=== PATIENT | male | born 1970 | race Caucasian/White ===

== ENCOUNTER 2016-12-09 17:17 | Emergency (ER) | payer OTHER ==
[2016-12-09 17:20] VITALS: BP 147/99; PULSE 67; RESP 15; TEMP 98.1; O2SAT 100
--- NOTE | 2016-12-09 17:36 | PD ---
Physical Exam Time Seen by Provider: 17:34 Narrative 46 year old male presents to ED for evaluation of itching and weeping of skin on face. Rash started [address] Springer gave pt injection for possible allergic reaction 6 days ago, but symptoms persist. PCP advised he come for possible evaluation of infection. Denies fever or chills. No new exposures. Data Data Last Documented VS Vital Signs Date Time Temp Pulse Resp B/P (MAP) Pulse Ox O2 Delivery O2 Flow Rate FiO2 12/09/16 18:35 12/09/16 17:20 98.1 67 15 100 Room Air [facility] Medical Record Reviewed: Yes Supervised Visit with CHELO: No Scripts Triamcinolone Topical (Triamcinolone Topical) 0.1% Cream 1 APPLIC TOPICAL BID for Inflammation for 10 Days, GM 0 Refills Prov: Merna Zhang DO 12/09/16 Cephalexin (Keflex) 500 Mg Capsule 500 MG PO Q8H for Infection for 10 Days, #30 CAP 0 Refills Prov: Merna Zhang DO 12/09/16 Condition: Stable Theresa Burrell Dec 09, 2016 17:35
[2016-12-09] MEDS ORDERED: CEPH-460 PO (18:03)
[2016-12-09] MEDS ORDERED: TRIA.1%T TOPICAL (18:03)
--- NOTE | 2016-12-09 18:10 | PD ---
HPI Chief Complaint: Skin Problem Time Seen by Provider: 18:02 Travel History International Travel<30 days: No Contact w/Intl Traveler<30days: No Traveled to known affect area: No History of Present Illness HPI 46-year-old male presents for evaluation of rash to the chin jawline. It started 2 weeks ago. The rash itches and belcher. No alleviating factors. He is tripoding baby powder on it but the rash persisted. He does shave his face on a regular basis. He denies using any makeup sore chemicals on his face. He saw his primary care physician 3 days ago and was given some sort of injection for possible allergic reaction. The rash persisted which prompted evaluation today. No fevers, chills, oral pain, cough or congestion or sore throat. He has no other complaints. [facility] Social History Alcohol Use: No Tobacco Use: No Allergies-Medications (Allergen,Severity, Reaction): Coded Allergies: No Known Allergies (Unverified , 12/09/16) Reported Meds & Prescriptions Reported Meds & Active Scripts Active Triamcinolone Topical (Triamcinolone Acetonide) 0.1% Cream 1 Applic TOPICAL BID 10 Days Keflex (Cephalexin) 500 Mg Capsule 500 Mg PO Q8H 10 Days Review of Systems General / Constitutional: No: Fever, Chills HENT: No: Congestion Respiratory: No: Cough Skin: Positive Rash, Positive Itching Physical Exam Narrative GENERAL: Well-nourished male in no acute distress SKIN: Warm and dry. Nonspecific papular lesions noted to the jaw and chin. No vesicles no pustules no erythema and no induration no petechiae HEAD: Atraumatic. Normocephalic. EYES: Pupils equal and round. No scleral icterus. No injection or drainage. ENT: No nasal bleeding or discharge. Mucous membranes pink and moist. NECK: Trachea midline. No JVD. CARDIOVASCULAR: Regular rate and rhythm. No murmur appreciated. RESPIRATORY: No accessory muscle use. Clear to auscultation. Breath sounds equal bilaterally. Data Data Last Documented VS Vital Signs Date Time Temp Pulse Resp B/P (MAP) Pulse Ox O2 Delivery O2 Flow Rate FiO2 12/09/16 17:20 98.1 67 15 147/99 (115) 100 Room Air MDM Medical Decision Making Medical Screen Exam Complete: Yes Emergency Medical Condition: Yes Medical Record Reviewed: Yes Differential Diagnosis Folliculitis, irritant contact dermatitis, cellulitis, tinea corporis Narrative Course Examination reveals nonspecific papular lesions localized to the chin and jaw line which are most likely folliculitis versus irritant contact dermatitis. The patient is being discharged with Keflex and triamcinolone cream. Recommend follow-up with primary care physician. Diagnosis Primary Impression: Folliculitis Additional Impression: Irritant contact dermatitis Qualified Codes: L24.9 - Irritant contact dermatitis, unspecified cause Additional Instructions: Medication as prescribed. [id number] Benadryl for itching. Follow-up with primary care. Med/Other Pt SpecificInfo: Prescription(s) given Scripts Triamcinolone Topical (Triamcinolone Topical) 0.1% Cream 1 APPLIC TOPICAL BID for Inflammation for 10 Days, GM 0 Refills Prov: Merna Zhang DO 12/09/16 Cephalexin (Keflex) 500 Mg Capsule 500 MG PO Q8H for Infection for 10 Days, #30 CAP 0 Refills Prov: Merna Zhang DO 12/09/16 Disposition: 01 DISCHARGE HOME Condition: Stable Jamie Royal Dec 09, 2016 18:10
== END 2016-12-09 18:37 | disposition home or self-care (01) ==
LOC: NEPK 17:17
DX: L73.9 Follicular disorder, unspecified (principal); L24.9 Irritant contact dermatitis, unspecified cause
CPT/HCPCS: 99284

== ENCOUNTER 2017-06-17 08:46 | Emergency (ER) | payer OTHER, BC ==
[~2017-06-17] VITALS: Ht 170.2 cm; Wt 83.0 kg
[~2017-06-17 08:46] MED LIST: CEPH-460 PO; TRIA.1%T TOPICAL
[2017-06-17 08:54] VITALS: BP 138/84; PULSE 61; RESP 15; TEMP 98; O2SAT 100
[2017-06-17] MEDS ORDERED: HYDR25TA5 PO (08:57)
[2017-06-17] MEDS ORDERED: SULFAMETHOXAZOLE-TRIMETHOPRIM DS 800-160 MG TAB PO ONE (10:15)
[2017-06-17] MEDS ORDERED: BACT800T5 PO (10:16)
--- NOTE | 2017-06-17 10:17 | PD ---
HPI Chief Complaint: Exposure to Blood/Body Fluids Time Seen by Provider: 09:58 Travel History International Travel<30 days: No Contact w/Intl Traveler<30days: No Traveled to known affect area: No History of Present Illness HPI 46-year-old male presents emergency department for evaluation of a left index finger needle stick while working yesterday. Patient states that he was dumping a garbage can when he had a needle inserted into his left index finger. Patient denies any foreign body sensation. Says he was able to completely remove needle. Says that he went up to the home and asked about this needle. According to patient, the grandfather has diabetes and use needles for his insulin. Denies any known chronic disease process such as hepatitis or HIV. Patient states he actually has a needle with him today. Patient denies fever, chills. Denies significant pain in his left index finger. He denies chronic medical issues except for hypertension which he uses hydrochlorothiazide. PFSH Past Medical History Cardiovascular Problems: Yes (HTN) Hypertension: Yes Tetanus Vaccination: < 5 Years Influenza Vaccination: No Past Surgical History Surgical History: No Previous Surgery Social History Alcohol Use: Yes (social-rare) Tobacco Use: No Substance Use: No Allergies-Medications (Allergen,Severity, Reaction): Coded Allergies: No Known Allergies (Unverified Adverse Reaction, Unknown, 06/17/17) Reported Meds & Prescriptions Reported Meds & Active Scripts Active Bactrim DS (Sulfamethoxazole-Trimethoprim) 800-160 Mg Tab 1 Tab PO BID Reported Hydrochlorothiazide 25 Mg Tab 25 Mg PO DAILY Review of Systems Except as stated in HPI: all other systems reviewed are Neg Physical Exam Narrative GENERAL: Well-nourished, well-developed patient. SKIN: Focused skin assessment warm/dry. Left index finger-distal aspect of her lateral finger pad, faint evidence of puncture wound, slight erythema compared to the right. No lymph angiopathic spread. Full range of motion without numbness or tingling. HEAD: Normocephalic. EYES: No scleral icterus. No injection or drainage. NECK: Supple, trachea midline. No JVD or lymphadenopathy. CARDIOVASCULAR: Regular rate and rhythm without murmurs, gallops, or rubs. RESPIRATORY: Breath sounds equal bilaterally. No accessory muscle use. GASTROINTESTINAL: Abdomen soft, non-tender, nondistended. No CVA tenderness MUSCULOSKELETAL: No cyanosis, or edema. BACK: Nontender without obvious deformity. No CVA tenderness. Data Data Last Documented VS Vital Signs Date Time Temp Pulse Resp B/P (MAP) Pulse Ox O2 Delivery O2 Flow Rate FiO2 06/17/17 08:54 98.0 61 15 138/84 (102) 100 Orders Orders Sulfamet-Trimeth Ds 800-160 Mg (Bactrim (06/17/17 10:15) Hiv Antibody Screen (06/17/17 10:13) Hepatitis Profile (06/17/17 10:13) Complete Blood Count With Diff (06/17/17 10:13) Comprehensive Metabolic Panel (06/17/17 10:13) Ed Discharge Order (06/17/17 10:33) Labs Laboratory Tests Test 06/17/17 10:30 White Blood Count 6.5 TH/MM3 Red Blood Count 5.76 MIL/MM3 Hemoglobin 16.2 GM/DL Hematocrit 49.3 % Mean Corpuscular Volume 85.6 FL Mean Corpuscular Hemoglobin 28.2 PG Mean Corpuscular Hemoglobin Concent 32.9 % Red Cell Distribution Width 12.6 % Platelet Count 249 TH/MM3 Mean Platelet Volume 8.9 FL Neutrophils (%) (Auto) 76.5 % Lymphocytes (%) (Auto) 17.0 % Monocytes (%) (Auto) 4.4 % Eosinophils (%) (Auto) 1.5 % Basophils (%) (Auto) 0.6 % Neutrophils # (Auto) 5.0 TH/MM3 Lymphocytes # (Auto) 1.1 TH/MM3 Monocytes # (Auto) 0.3 TH/MM3 Eosinophils # (Auto) 0.1 TH/MM3 Basophils # (Auto) 0.0 TH/MM3 CBC Comment DIFF FINAL Differential Comment Blood Urea Nitrogen 14 MG/DL Creatinine 0.83 MG/DL Random Glucose 93 MG/DL Total Protein 8.1 GM/DL Albumin 4.1 GM/DL Calcium Level 9.2 MG/DL Alkaline Phosphatase 62 U/L Aspartate Amino Transf (AST/SGOT) 28 U/L Alanine Aminotransferase (ALT/SGPT) 47 U/L Total Bilirubin 0.8 MG/DL Sodium Level 137 MEQ/L Potassium Level 4.0 MEQ/L Chloride Level 103 MEQ/L Carbon Dioxide Level 28.4 MEQ/L Anion Gap 6 MEQ/L Estimat Glomerular Filtration Rate 99 ML/MIN Hepatitis A IgM Antibody NONREACTIVE Hepatitis B Surface Antigen NONREACTIVE Hepatitis B Core IgM Antibody NONREACTIVE Hepatitis C IgG Antibody NONREACTIVE HIV (1&2) Ab and P24 Ag, 4th Gener NONREACTIVE MDM Medical Decision Making Medical Screen Exam Complete: Yes Emergency Medical Condition: Yes Differential Diagnosis Needle exposure, prophylaxis, accidental needlestick Narrative Course 46-year-old male presents emergency department for evaluation of a needlestick that occurred 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 Vital signs are stable. Physical exam findings consistent with a faint puncture mani to the left distal lateral index finger fingerpad. I discussed this case with Dr. Gonzalez and he recommended labs for his baseline. Do not suspect any issues with his labs while in the emergency department today. These are baseline labs and patient has no other complaints other than his fingerstick. Bactrim administered emergency department. Patient will receive a prescription for Bactrim as an outpatient to reduce possibility of a bacterial infectious process. Patient advised to follow-up with his primary care physician. Patient discharged prior to labs being resulted as these are baseline. Patient has no other complaints today. Labs are stable. Diagnosis Primary Impression: Needle stick, hypodermic, accidental Qualified Codes: W46.0XXA - Contact with hypodermic needle, initial encounter Referrals: Primary Care Physician Patient Instructions: Postexposure Prophylaxis (ED) Additional Instructions: Follow-up with primary care physician. Follow-up with lab work in 1 to 2 months with a primary care physician. If you develop fever, chills return to the emergency department. Scripts Sulfamethoxazole-Trimethoprim (Bactrim DS) 800-160 Mg Tab 1 TAB PO BID for Infection, #14 TAB 0 Refills Prov: Radhames Santacruz MD 06/17/17 Disposition: 01 DISCHARGE HOME Condition: Stable Vannessa Christiansen Jun 17, 2017 10:16
[2017-06-17 10:38] LABS: BASOPHIL % 0.6 % (0.0-2.0); EOSINOPHIL # 0.1 TH/MM3 (0-0.4); EOSINOPHIL % 1.5 % (0.0-4.0); HEMATOCRIT 49.3 % (39.0-51.0); HEMOGLOBIN 16.2 GM/DL (13.0-17.0); LYMPHOCYTE # 1.1 TH/MM3 (1.0-4.8); MEAN CELL VOLUME 85.6 FL (80.0-100.0); MEAN CORPUSCULAR HEMOGLOBIN 28.2 PG (27.0-34.0); MEAN CORPUSCULAR HGB CONC 32.9 % (32.0-36.0); MEAN PLATELET VOLUME 8.9 FL (7.0-11.0); MONO % 4.4 % (0.0-8.0); MONOCYTE # 0.3 TH/MM3 (0-0.9); NEUT % 76.5 % (16.0-70.0); PLATELET COUNT 249 TH/MM3 (150-450); RED BLOOD COUNT 5.76 MIL/MM3 (4.50-5.90); RED CELL DISTRIBUTION WIDTH 12.6 % (11.6-17.2); WHITE BLOOD COUNT 6.5 TH/MM3 (4.0-11.0)
[2017-06-17 10:51] LABS: CHLORIDE 103 MEQ/L (98-107); SODIUM (NA) 137 MEQ/L (136-145)
[2017-06-17 10:56] LABS: ALBUMIN 4.1 GM/DL (3.4-5.0); BICARBONATE 28.4 MEQ/L (21.0-32.0); CALCIUM 9.2 MG/DL (8.5-10.1)
[2017-06-17 10:57] LABS: BLOOD UREA NITROGEN 14 MG/DL (7-18); GLUCOSE,RANDOM 93 MG/DL (74-106)
[2017-06-17 11:00] LABS: ALT (GPT) 47 U/L (12-78); AST (GOT) 28 U/L (15-37); CREATININE 0.83 MG/DL (0.60-1.30); GLOMERULAR FILTRATION RATE 99 ML/MIN (>89)
[2017-06-17 11:01] LABS: TOTAL BILIRUBIN ADULT 0.8 MG/DL (0.2-1.0); TOTAL PROTEIN 8.1 GM/DL (6.4-8.2)
[2017-06-17 11:02] LABS: ALKALINE PHOSPHATASE 62 U/L (45-117)
== END 2017-06-17 11:18 | disposition home or self-care (01) ==
LOC: PHEFT 08:46
DX: S61.231A Puncture wound without foreign body of left index finger without damage to nail, initial encounter (principal); I10 Essential (primary) hypertension; W46.0XXA Contact with hypodermic needle, initial encounter; Z77.21 Contact with and (suspected) exposure to potentially hazardous body fluids
CPT/HCPCS: 80053; 80074; 85025; 86703; 99283